=== PATIENT | male | born 1935 | race Caucasian/White ===

== ENCOUNTER 2016-04-05 13:56 | Outpatient (CLI) | payer MEDICARE, OTHER | END 2016-04-05 23:59 | DX: I10 Essential (primary) hypertension (principal); R73.9 Hyperglycemia, unspecified ==

== ENCOUNTER 2016-09-28 09:10 | Outpatient (CLI) | payer MEDICARE, OTHER ==
[2016-09-28 12:31] LABS: ALBUMIN/GLOBULIN RATIO 0.6 (1.0-2.2); BILIRUBIN,TOTAL 0.7 mg/dL (0.2-1.0); CALCIUM 10.2 mg/dL (8.5-10.3); CREATININE 1.2 mg/dL (0.6-1.2); POTASSIUM 4.4 mmol/L (3.5-5.0); URIC ACID 4.4 mg/dL (2.6-7.2)
== END 2016-09-28 09:11 | disposition home or self-care (01) ==
LOC: LAB.WCP 09:10
PROVIDERS: ATTEND Family Medicine
DX: R73.9 Hyperglycemia, unspecified (principal); E79.0 Hyperuricemia without signs of inflammatory arthritis and tophaceous disease; I10 Essential (primary) hypertension
CPT/HCPCS: 36415; 80053; 84550

== ENCOUNTER 2016-12-01 23:58 | Outpatient (CLI) | payer MEDICARE, OTHER | END 2016-12-01 23:59 | disposition short-term general hospital (02) | LOC: EMS 23:58 | PROVIDERS: ATTEND Surgery | DX: R06.02 Shortness of breath (principal); R53.1 Weakness | CPT/HCPCS: A0425; A0433 ==

== ENCOUNTER 2016-12-10 13:09 | Outpatient (CLI) | payer MEDICARE, OTHER | END 2016-12-10 13:10 | disposition critical access hospital (66) | LOC: EMS 13:09 | PROVIDERS: ATTEND Surgery | DX: R06.02 Shortness of breath (principal) | CPT/HCPCS: A0425; A0429 ==